=== PATIENT | female | born 1955 | race Two or more races ===

== ENCOUNTER 2025-02-06 10:35 | Emergency (ER) | payer OTHER ==
[~2025-02-06] VITALS: Ht 152.4 cm; Wt 86.2 kg
[2025-02-06] MEDS ORDERED: ZESTRIL20 MG PO (11:30)
[2025-02-06] MEDS ORDERED: PROTONIX40 MG PO (11:31)
[2025-02-06] MEDS ORDERED: TOPROL XL25 M1 PO (11:31)
[2025-02-06] MEDS ORDERED: ATORVASTATIN CA20 MG PO (11:31)
[2025-02-06] MEDS ORDERED: LEVOTHYROXINE25 MCG PO (11:31)
[2025-02-06] MEDS ORDERED: ONDANSETRON HCL 2 MG/ML VIAL IV ONE (12:00)
[2025-02-06] MEDS ORDERED: 0.9 % SODIUM CHLORIDE 1,000 ML IV ONE (12:00)
[2025-02-06 13:20] LABS: HEMATOCRIT 43.2 % (36.0-45.00); HEMOGLOBIN 14.8 g/dL (12.0-15.00); INR 1.02; MEAN CELL VOLUME 89.9 fL (80.00-100.00); MEAN CORPUSCULAR HEMOGLOBIN 30.8 pg (27.00-32.0); MEAN CORPUSCULAR HGB CONC 34.2 g/dl (32.0-36.0); PARTIAL THROMBOPLASTIN TIME 29.6 SECONDS (22.0-34.0); PROTHROMBIN TIME 11.1 SECONDS (9.0-11.5); RED BLOOD COUNT 4.81 M/uL (4.00-6.00); RED CELL DISTRIBUTION WIDTH 12.9 % (11.5-14.5)
[2025-02-06 13:21] LABS: CREATININE SERUM 0.72 mg/dL (0.55-1.02); GFR 79.85; PLATELET COUNT 98 K/uL (150-450)
[2025-02-06 13:31] LABS: POTASSIUM 2.89 mEq/L (3.5-5.1)
[2025-02-06] MEDS ORDERED: POTASSIUM BICARBONATE/CIT AC 25 MEQ TABLET.EFF PO ONE (14:00)
[2025-02-06 20:18] LABS: URINE APPEARANCE Clear; URINE BILIRRUBIN Negative (NEGATIVE); URINE BLOOD Trace; URINE COLOR Yellow; URINE GLUCOSE Negative (NEGATIVE); URINE LEUKOCYTE Negative; URINE NITRATE Negative
[2025-02-06 20:25] LABS: MEAN CELL VOLUME 88.7 fL (80.00-100.00); MEAN CORPUSCULAR HEMOGLOBIN 31.1 pg (27.00-32.0); MEAN CORPUSCULAR HGB CONC 35.1 g/dl (32.0-36.0); RED BLOOD COUNT 4.51 M/uL (4.00-6.00); RED CELL DISTRIBUTION WIDTH 13.4 % (11.5-14.5)
[2025-02-06 20:28] LABS: PLATELET COUNT 78 K/uL (150-450)
[2025-02-06 20:40] LABS: URINE BACTERIA > 9821.5 uL (0.0-1933); URINE EPITHELIAL CELLS 41.4 uL (0.0-38.8); URINE KETONE 80 (NEGATIVE); URINE PROTEIN 300 (NEGATIVE); URINE RBC 34.6 uL (0.0-20.8)
[2025-02-06 20:41] LABS: URINE CAST 0.44 uL (0.0-1.40)
[2025-02-06 20:45] LABS: CALCIUM 8.1 mg/dL (8.5-10.1); CREATININE SERUM 0.62 mg/dL (0.55-1.02); GFR 94.89; POTASSIUM 3.22 mEq/L (3.5-5.1)
== END 2025-02-06 22:07 | disposition home or self-care (01) ==
LOC: ER 10:38
PROVIDERS: General Practice
DX: S05.11XA Contusion of eyeball and orbital tissues, right eye, initial encounter (principal); W18.39XA Other fall on same level, initial encounter; Y93.89 Activity, other specified; Y92.018 Other place in single-family (private) house as the place of occurrence of the external cause; Y99.9 Unspecified external cause status; R53.81 Other malaise; I10 Essential (primary) hypertension; Z20.822 Contact with and (suspected) exposure to COVID-19
CPT/HCPCS: 36415; 70450; 70486; 71045; 72125; 93005; 96365; 96366; 99284; J2405; J3490